=== PATIENT | male | born 1995 | race Caucasian/White ===

== ENCOUNTER 2017-03-30 02:01 | Emergency (ER) | payer SELFPAY ==
[2017-03-30] MEDS ORDERED: HYDROmorphone 2 MG/1 ML IVP ONE (02:33)
[2017-03-30] MEDS ORDERED: HYDROmorphone 2 MG/1 ML ONE (02:36)
[2017-03-30] MEDS ORDERED: Sodium Chloride 0.9% 1,000 ML ONE (02:36)
[2017-03-30] MEDS ORDERED: SILVER SULFADIAZINE 1% TOPICAL SCH (03:45)
[2017-03-30 03:52] VITALS: TEMP 97.6
[2017-03-30] MEDS ORDERED: SILVER SULFADIAZINE 1% TOPICAL ONE (03:55)
[2017-03-30] MEDS ORDERED: HYDROcodone-APAP 10 MG-325 MG TABLET PO SCH (04:00)
[2017-03-30] MEDS ORDERED: Sodium Chloride 0.9% 1,000 ML PRIMARY IV ONE (04:41)
[2017-03-30 04:55] VITALS: RESP 16
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
== END 2017-03-30 04:25 | disposition home or self-care (01) ==
LOC: ER 02:01
DX: T23.291A Burn of second degree of multiple sites of right wrist and hand, initial encounter (principal); X08.8XXA Exposure to other specified smoke, fire and flames, initial encounter
CPT/HCPCS: 96361; 96374; 99283; J1170; J7030

== ENCOUNTER 2017-03-30 14:30 | Emergency (ER) | payer SELFPAY ==
[2017-03-30 14:48] VITALS: RESP 18; TEMP 97
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
== END 2017-03-30 14:57 | disposition home or self-care (01) ==
LOC: ER 14:30
DX: T23.291A Burn of second degree of multiple sites of right wrist and hand, initial encounter (principal); X08.8XXA Exposure to other specified smoke, fire and flames, initial encounter
CPT/HCPCS: 99282

== ENCOUNTER 2017-12-15 01:09 | Inpatient (IN) ==
[2017-12-15] MEDS ORDERED: LORazepam 2 MG/1 ML VIAL ONE ×2 (01:18→02:38)
[2017-12-15] MEDS ORDERED: LORazepam 2 MG/1 ML VIAL IVP ONE ×2 (01:20→07:46)
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
[2017-12-15 01:29] LABS: BASOPHILS # (AUTO) 0.04 10*3/UL; BASOPHILS % (AUTO) 0.4 % (0-1); EOSINOPHILS # (AUTO) 0.39 10*3/UL; EOSINOPHILS % (AUTO) 3.5 % (0-8); Hematocrit [HCT] 50.2 % (42.0-52.0); Hemoglobin [HGB] 18.7 g/dL (14.0-18.0); LYMPHOCYTES # (AUTO) 3.89 10*3/uL; MEAN CORPUSCULAR HEMOGLOBIN 32.1 PG (27-31); MEAN CORPUSCULAR HGB CONC 37.3 g/dL (33-37); MEAN CORPUSCULAR VOLUME 86.1 FL (80-90); MEAN PLATELET VOLUME 9.3 FL (7.4-12.2); MONOCYTES % (AUTO) 6.2 % (5-15); NEUTROPHILS # (AUTO) 6.22 10*3/UL; NEUTROPHILS % (AUTO) 55.1 % (50-80); RED BLOOD COUNT 5.83 10^6/uL (4.70-6.10)
[2017-12-15 01:30] LABS: PLATELET MORPHOLOGY COMMENT NORMAL MORPHOLOGY (NORM); RBC MORPHOLOGY COMMENT NORMAL MORPHOLOGY (NORM); WBC MORPHOLOGY COMMENT NORMAL MORPHOLOGY (NORM)
[2017-12-15] MEDS ORDERED: Midazolam Inj 100 MG in Sodium Chloride 0.9% 80 ML IV SCH ×2 (01:45→02:02)
[2017-12-15] MEDS ORDERED: MIDAZOLAM 5 MG/1 ML ONE (01:47)
[2017-12-15] MEDS ORDERED: MIDAZOLAM HCL 50 MG/10 ML VIAL ONE (01:56)
[2017-12-15] MEDS ORDERED: ONDANSETRON 4 MG/2 ML VIAL IVP ONE (01:57)
[2017-12-15] MEDS ORDERED: Sodium Chloride 0.9% 1,000 ML PRIMARY IV ONE (01:57)
[2017-12-15] MEDS ORDERED: MIDAZOLAM HCL 50 MG/10 ML VIAL IV ONE (02:00)
[2017-12-15 02:14] LABS: AMPHETAMINE SCREEN NEGATIVE (NEG); CANNABINOID SCREEN,URINE NEGATIVE (NEG); COCAINE SCREEN NEGATIVE (NEG); METHADONE URINE SCREEN NEGATIVE (NEG); METHAMPHETAMINES SCREEN,URINE NEGATIVE (NEG); OPIATE SCREEN,URINE NEGATIVE (NEG); URINE SAMPLE TYPE CATH SPECIMEN
[2017-12-15 02:15] LABS: BILIRUBIN,URINE NEGATIVE (NEG); CLARITY,URINE CLEAR (CLEAR); COLOR,URINE YELLOW (Y); GLUCOSE, URINE (UA) NEGATIVE (NEG); OCCULT BLOOD,URINE MODERATE (NEG); PROTEIN,URINE NEGATIVE (NEG); UROBILINOGEN,URINE 0.2 EU/dL (0.2)
[2017-12-15 02:16] LABS: BLOOD UREA NITROGEN 11 mg/dL (7-22); BUN/CREATININE RATIO 12.22 (6-20); SERUM ALBUMIN 4.8 g/dL (3.5-4.8)
[2017-12-15 02:17] LABS: BACTERIA,URINE RARE; SQUAMOUS EPITHELIAL CELL,UR RARE; URINE SPECIFIC GRAVITY - MAN 1.002
[2017-12-15] MEDS ORDERED: Sodium Chloride 0.9% 100 ML IV ONE ×2 (02:26→03:45)
--- NOTE | 2017-12-15 03:28 | DI ---
EXAM: CT Head Without Intravenous Contrast CLINICAL HISTORY: ITS.REASON ams Physician Notes: Tech Comments: TECHNIQUE: Axial computed tomography images of the head/brain without intravenous contrast. COMPARISON: MR brain dated 06/03/2014. FINDINGS: Brain: Unremarkable. No acute intracranial hemorrhage. No midline shift or herniation. Ventricles: Unremarkable. No ventriculomegaly. Bones/joints: No acute fracture. Soft tissues: Unremarkable. Sinuses: Unremarkable as visualized. Mastoid air cells: Unremarkable as visualized. Tubes, lines and devices: Coiling of an orogastric tube within the nasopharynx and oropharynx. IMPRESSION: No acute findings.
--- NOTE | 2017-12-15 03:30 | DI ---
EXAM: XR Chest, 1 View CLINICAL HISTORY: ITS.REASON intubation Physician Notes: Tech Comments: TECHNIQUE: Frontal view of the chest. COMPARISON: None. FINDINGS: Lungs: Unremarkable. The lungs are clear. Pleural space: Unremarkable. No pneumothorax. Heart: Unremarkable. No cardiomegaly. Mediastinum: Unremarkable. Bones/joints: Unremarkable. Tubes, lines and devices: Endotracheal tube terminates approximately 7 cm above the sergei. Gastric tube terminates slightly below the diaphragm. IMPRESSION: No evidence of acute cardiopulmonary process. Slight advancement of orogastric tube suggested.
[2017-12-15 04:36] LABS: ABG PCO2 39 MMHG (34-38); ABG PO2 242 MMHG (65-75)
[2017-12-15 04:37] LABS: ABG OXYGEN SATURATION 100 % (90-100); ALLEN TEST positive
[2017-12-15] MEDS ORDERED: ETOMIDATE 2 MG/1 ML - 20 ML IVP ONE (04:57)
[2017-12-15] MEDS ORDERED: SUCCINYLCHOLINE CHLORIDE 20 MG/1 ML - 10 ML IVP ONE (04:58)
[2017-12-15] MEDS ORDERED: MIDAZOLAM 5 MG/1 ML IVP ONE ×2 (04:59→05:38)
[2017-12-15 06:48] LABS: ABG PCO2 36 MMHG (34-38); ABG PH 7.37 (7.35-7.45)
[2017-12-15 06:49] LABS: ABG BASE EXCESS -4 MMOL/L (-2-2); ABG OXYGEN SATURATION 99 % (90-100); ABG PO2 157 MMHG (65-75)
[2017-12-15] MEDS ORDERED: LORazepam Inj(ETOH withdrawal) 2 MG/ML VIAL IVP PRN ×2 (07:43→14:42)
[2017-12-15] MEDS ORDERED: ONDANSETRON 4 MG/2 ML VIAL IV PRN ×2 (07:43→14:42)
[2017-12-15] MEDS ORDERED: Propofol 1,000 MG/100 ML VIAL IV SCH (07:43)
[2017-12-15] MEDS ORDERED: FENTANYL IV SCH (07:43)
[2017-12-15] MEDS ORDERED: SODIUM CHLORIDE 0.9% IV SCH (07:43)
[2017-12-15] MEDS ORDERED: MAGNESIUM 400 MG/5 ML - 30 ML (MILK OF MAGNESIA) PO PRN (07:43)
[2017-12-15] MEDS ORDERED: MAG HYDROX/AL HYDROX/SIMETH 30 ML SUSP PO PRN (07:43)
[2017-12-15] MEDS ORDERED: Sodium Chloride 0.9% 1,000 ML with Multivitamin Inj 10 ML, Thiamine Inj 100 MG, Folic A... IV SCH ×5 (07:43)
[2017-12-15] MEDS ORDERED: LIDOCAINE W/ SODIUM BICARB 0.5 ML SYR SUBD PRN ×2 (07:43→14:42)
[2017-12-15] MEDS ORDERED: NORMAL SALINE 10 ML SYRINGE FLUSH IVP PRN (07:43)
[2017-12-15] MEDS ORDERED: Loperamide Tab 2 MG TABLET PO PRN (07:43)
[2017-12-15 07:58] LABS: BLOOD UREA NITROGEN 10 mg/dL (7-22); BUN/CREATININE RATIO 14.28 (6-20)
[2017-12-15] MEDS ORDERED: Sodium Chloride 0.9% 500 ML PRIMARY IV SCH ×2 (09:00→14:42)
[2017-12-15] MEDS ORDERED: Thiamine Tab 100 MG TAB PO SCH (09:00)
[2017-12-15] MEDS ORDERED: Pantoprazole Inj 40 MG in Normal Saline Flush 10 ML IVP SCH (09:00)
[2017-12-15] MEDS ORDERED: fentaNYL Inj 100 MCG/2 ML VIAL IVP PRN (09:10)
--- NOTE | 2017-12-15 13:28 | PDOC ---
HPI - History of Present Illness Date of Service: 12/15/17 Time of Service: 08:45 Chief Complaint: Intoxicated, intubated History of Present Illness: This is a 22-year-old male with apparent history of significant alcohol abuse who presented to the emergency room after being brought in by his family in an obtunded and altered mental status state. He did drink heavily, apparently had hit his head on a coffee table, and was not acting appropriately. In the emergency room, it was determined that the patient was not protecting his airway and he was intubated for airway protection due to his alcohol intoxication. His initial blood alcohol level was almost 400. This did decrease. He was also found to be hyponatremic and hypokalemic. He cannot provide me any details as he is intubated. Family is not available at the time of my interview. Past Medical History Medical History: Apparently alcohol abuse Surgical History: Cannot obtain due to intubated state. Pertinent Family History: I cannot obtain this information from the patient as he is intubated Past Social History: Drinks alcohol. I cannot obtain any other information as the patient is intubated Tobacco Use: Smoker Current Status Unknown In the Past 12 Months, Have Used or Abuse Any of the Following Substance: None Alcohol Use: Heavy Medication / Allergies Home Medications: Home Medications 3 Medication Instructions Recorded Confirmed Type ibuprofen 800 mg tablet 800 mg PO TID #30 tab 07/19/17 12/15/17 Rx Acetaminophen [Tylenol] 1,500 mg PO BID PRN 08/02/17 12/15/17 History amoxicillin 875 mg tablet 875 mg PO BID 10 Days #20 tab 12/08/17 12/15/17 Rx Allergies/Adverse Reactions: Allergies 3 Allergy/AdvReac Type Severity Reaction Status Date / Time No Known Drug Allergies Allergy NOT Verified 12/15/17 09:40 APPLICABLE Review of Systems - Review of Systems ROS Unobtainable: Due to Endotracheal Tube (The patient is intubated for airway protection in the setting of alcohol intoxication. He was not protecting his airway and I cannot obtain any information from him regarding his review systems.) Exam - - Exam: Vital Signs (24 hrs) Temp Pulse Pulse Pulse Resp BP BP 12/15/17 13:00 101 H 15 98/62 12/15/17 12:00 83 14 98/62 12/15/17 11:00 81 86 16 93/58 12/15/17 09:59 94 19 103/67 12/15/17 07:43 96.9 F 100 100 16 98/69 12/15/17 07:39 92 14 93/55 12/15/17 07:05 100 14 88/53 12/15/17 03:50 97.1 F 84 14 90/51 12/15/17 01:36 114 H 18 105/70 Pulse Ox 12/15/17 13:00 99 12/15/17 12:00 98 12/15/17 11:00 98 12/15/17 09:59 96 12/15/17 07:43 97 12/15/17 07:39 98 12/15/17 07:05 12/15/17 03:50 100 12/15/17 01:36 - Vitals Vital Signs: Vital Signs Temperature 96.9 F Temperature Source Axillary Pulse Rate [Apical] 100 Pulse Rate [Telemetry] 101 Pulse Rate 81 Respiratory Rate 15 Blood Pressure [Right Arm] 98/62 Pulse Ox 99 Oxygen Delivery Method Mechanical Ventilator Height 5 ft 10 in Weight 149 lb 4.8 oz - General General Appearance: Thin Additional General Exam Details: Initially, the patient was quite combative. He was placed on restraints, soft restraints, in the emergency room, but we were able to remove those restraints in the intensive care unit with sedation and pain control. Otherwise resting on ventilator comfortably now. - Head Head Exam: Normal Inspection, Normocephalic, Atraumatic - Eye Eye Exam: POSITIVE: No Scleral Icterus - ENT ENT Exam: POSITIVE: Mucous Membranes Moist Additonal ENT Exam Details: Endotracheal tube and orogastric tube are in place. - Neck Neck Exam: Normal Inspection, No Lymphadenopathy, No Thyromegaly, JVP is not Raised - Respiratory Respiratory Exam: POSITIVE: Clear to Auscultation - Bilaterally, Breathing Non Labored - Cardiovascular Cardiovascular Exam: POSITIVE: RRR, No Murmur, No Clicks, No Gallops, No Rubs, No JVD - GI/Abdominal GI/Abdominal Exam: POSITIVE: Normal Bowel Sounds, Non Distended, Soft - Rectal Rectal Exam: POSITIVE: Deferred - External Exam: POSITIVE: Deferred Exam: POSITIVE: Deferred - Extremities Extremities Exam: POSITIVE: No Clubbing Present, No Edema Present, No Cyanosis Present - Neurological Additional Neurological Exam Details: Patient is intubated, is on sedative medications, and neurologic examination cannot be done at this time due to this. - Integumentary Integumentary Exam: POSITIVE: Normal Color, Warm, Dry, Intact - Central Line Examination Central Line Present on Admission: No Results - Labs CBC and BMP: 12/15/17 01:20 12/15/17 06:30 Additional Lab Results: Laboratory Results 12/15/17 12/15/17 12/15/17 Range/Units 01:20 01:20 01:50 WBC 11.27 H (4.8-10.8) 10^3/uL RBC 5.83 (4.70-6.10) 10^6/uL Hgb 18.7 H (14.0-18.0) g/dL Hct 50.2 (42.0-52.0) % MCV 86.1 (80-90) FL MCH 32.1 H (27-31) PG MCHC 37.3 H (33-37) g/dL RDW Std Deviation 39.9 (39-50) fL RDW Coeff of Riley 12.9 (11.5-14.5) % Plt Count 238 (140-350) 10*3/uL MPV 9.3 (7.4-12.2) FL Immature Gran % (Auto) 0.3 (0-5) % Neut % (Auto) 55.1 (50-80) % Lymph % (Auto) 34.5 (10-50) % [place] % (Auto) 6.2 (5-15) % Eos % (Auto) 3.5 (0-8) % Baso % (Auto) 0.4 (0-1) % Immature Gran # (Auto) 0.03 10*3/UL Neut # (Auto) 6.22 10*3/UL Lymph # (Auto) 3.89 10*3/uL [place] # (Auto) 0.70 (0.3-0.8) 10*3/UL Eos # (Auto) 0.39 10*3/UL Baso # (Auto) 0.04 10*3/UL WBC Morphology Comment Normal morphology (NORM) Plt Morphology Comment Normal morphology (NORM) RBC Morph Comment Normal morphology (NORM) ABG pH (7.35-7.45) ABG pCO2 (34-38) MMHG ABG pO2 (65-75) MMHG ABG HCO3 (22-26) ABG Total CO2 (23-27) MMOL/L ABG O2 Saturation (90-100) % ABG Base Excess (-2-2) MMOL/L Sina Test FiO2 Sodium 155 H (135-145) meq/L Potassium 3.3 L (3.8-5.2) meq/L Chloride 112 (98-112) meq/L Carbon Dioxide 15 L (23-33) meq/L Anion Gap 28 H (5-20) BUN 11 (7-22) mg/dL Creatinine 0.9 (0.70-1.50) mg/dL Estimated GFR > 60 (>60 ml/min/1.73m(2)) BUN/Creatinine Ratio 12.22 (6-20) Glucose 91 (78-110) mg/dL Calculated Osmolality 318.0 H (267-292) mOsm/kg Calcium 9.0 (8.7-10.7) mg/dL Phosphorus (2.4-4.3) mg/dl Magnesium 2.1 (1.6-2.4) mg/dL Total Bilirubin 0.4 (0.3-1.2) mg/dL AST 29 (21-57) IU/L ALT 34 (21-72) IU/L Alkaline Phosphatase 92 (38-126) IU/L Total Protein 7.9 (6.1-8.0) g/dL Albumin 4.8 (3.5-4.8) g/dL Globulin 3.1 (2.50-4.10) g/dL Albumin/Globulin Ratio 1.50 (1.3-2.0) mg/g Ur Collection Type Cath specimen Urine Color Yellow (Y) Urine Clarity Clear (CLEAR) Urine pH 6.0 (5.0-8.5) Ur Specific Ivel 1.002 (1.005-1.030) U Specif Grav (Refrac) 1.002 Urine Protein Negative (NEG) mg/dl Urine Glucose (UA) Negative (NEG) mg/dL Urine Ketones Negative (NEG) Urine Occult Blood Moderate H (NEG) Urine Nitrate Negative (NEG) Urine Bilirubin Negative (NEG) Urine Urobilinogen 0.2 (0.2) EU/dL Ur Leukocyte Esterase Negative (NEG) Urine RBC 1-3 (NONE) /hpf Urine WBC None (NONE) Ur Squamous Epith Cells Rare (NONE) Ur Renal Epithelial Cell None (NONE) Urine Crystals None Urine Bacteria Rare (NONE) Urine Casts None (NONE) Urine Mucus None (NONE) Urine Trichomonas None (NONE) Urine Yeast None (NONE) Ur Culture Indicated? Culture not set Urine Opiates Screen Negative (NEG) Ur Buprenorphine Negative (NEG) Ur Oxycodone Screen Negative (NEG) Urine Methadone Screen Negative (NEG) Ur Propoxyphene Screen Negative (NEG) Barbiturate Screen Negative (NEG) U Tricyclic Antidepress Negative (NEG) Phencyclidine Screen Negative (NEG) Amphetamines Screen Negative (NEG) U Methamphetamines Scrn Negative (NEG) Benzodiazepines Screen Negative (NEG) Cocaine Screen Negative (NEG) U Marijuana (THC) Screen Negative (NEG) Serum Alcohol 358 H (0-10) mg/dL 12/15/17 12/15/17 12/15/17 Range/Units 02:20 06:30 06:43 WBC (4.8-10.8) 10^3/uL RBC (4.70-6.10) 10^6/uL Hgb (14.0-18.0) g/dL Hct (42.0-52.0) % MCV (80-90) FL MCH (27-31) PG MCHC (33-37) g/dL RDW Std Deviation (39-50) fL RDW Coeff of [place] (11.5-14.5) % Plt Count (140-350) 10*3/uL MPV (7.4-12.2) FL Immature Gran % (Auto) (0-5) % Neut % (Auto) (50-80) % Lymph % (Auto) (10-50) % [place] % (Auto) (5-15) % Eos % (Auto) (0-8) % Baso % (Auto) (0-1) % Immature Gran # (Auto) 10*3/UL Neut # (Auto) 10*3/UL Lymph # (Auto) 10*3/uL [place] # (Auto) (0.3-0.8) 10*3/UL Eos # (Auto) 10*3/UL Baso # (Auto) 10*3/UL WBC Morphology Comment (NORM) Plt Morphology Comment (NORM) RBC Morph Comment (NORM) ABG pH 7.30 L (7.35-7.45) ABG pCO2 39 H (34-38) MMHG ABG pO2 242 H (65-75) MMHG ABG HCO3 -7 L (22-26) ABG Total CO2 19 L (23-27) MMOL/L ABG O2 Saturation 100 (90-100) % ABG Base Excess 20 H (-2-2) MMOL/L Sina Test positive FiO2 0.50 Sodium 151 H (135-145) meq/L Potassium 3.8 (3.8-5.2) meq/L Chloride 118 H (98-112) meq/L Carbon Dioxide 20 L (23-33) meq/L Anion Gap 13 (5-20) BUN 10 (7-22) mg/dL Creatinine 0.7 (0.70-1.50) mg/dL Estimated GFR > 60 (>60 ml/min/1.73m(2)) BUN/Creatinine Ratio 14.28 (6-20) Glucose 77 L (78-110) mg/dL Calculated Osmolality 309.0 H (267-292) mOsm/kg Calcium 7.5 L (8.7-10.7) mg/dL Phosphorus 3.0 (2.4-4.3) mg/dl Magnesium 1.8 (1.6-2.4) mg/dL Total Bilirubin 0.3 (0.3-1.2) mg/dL AST 50 (21-57) IU/L ALT 30 (21-72) IU/L Alkaline Phosphatase 74 (38-126) IU/L Total Protein 5.6 L (6.1-8.0) g/dL Albumin 3.0 L (3.5-4.8) g/dL Globulin 2.6 (2.50-4.10) g/dL Albumin/Globulin Ratio 1.10 L (1.3-2.0) mg/g Ur Collection Type Urine Color (Y) Urine Clarity (CLEAR) Urine pH (5.0-8.5) Ur Specific Ivel (1.005-1.030) U Specif Grav (Refrac) Urine Protein (NEG) mg/dl Urine Glucose (UA) (NEG) mg/dL Urine Ketones (NEG) Urine Occult Blood (NEG) Urine Nitrate (NEG) Urine Bilirubin (NEG) Urine Urobilinogen (0.2) EU/dL Ur Leukocyte Esterase (NEG) Urine RBC (NONE) /hpf Urine WBC (NONE) Ur Squamous Epith Cells (NONE) Ur Renal Epithelial Cell (NONE) Urine Crystals Urine Bacteria (NONE) Urine Casts (NONE) Urine Mucus (NONE) Urine Trichomonas (NONE) Urine Yeast (NONE) Ur Culture Indicated? Urine Opiates Screen (NEG) Ur Buprenorphine (NEG) Ur Oxycodone Screen (NEG) Urine Methadone Screen (NEG) Ur Propoxyphene Screen (NEG) Barbiturate Screen (NEG) U Tricyclic Antidepress (NEG) Phencyclidine Screen (NEG) Amphetamines Screen (NEG) U Methamphetamines Scrn (NEG) Benzodiazepines Screen (NEG) Cocaine Screen (NEG) U Marijuana (THC) Screen (NEG) Serum Alcohol 238 H (0-10) mg/dL 12/15/17 Range/Units 06:45 WBC (4.8-10.8) 10^3/uL RBC (4.70-6.10) 10^6/uL Hgb (14.0-18.0) g/dL Hct (42.0-52.0) % MCV (80-90) FL MCH (27-31) PG MCHC (33-37) g/dL RDW Std Deviation (39-50) fL RDW Coeff of Riley (11.5-14.5) % Plt Count (140-350) 10*3/uL MPV (7.4-12.2) FL Immature Gran % (Auto) (0-5) % Neut % (Auto) (50-80) % Lymph % (Auto) (10-50) % [place] % (Auto) (5-15) % Eos % (Auto) (0-8) % Baso % (Auto) (0-1) % Immature Gran # (Auto) 10*3/UL Neut # (Auto) 10*3/UL Lymph # (Auto) 10*3/uL [place] # (Auto) (0.3-0.8) 10*3/UL Eos # (Auto) 10*3/UL Baso # (Auto) 10*3/UL WBC Morphology Comment (NORM) Plt Morphology Comment (NORM) RBC Morph Comment (NORM) ABG pH 7.37 (7.35-7.45) ABG pCO2 36 (34-38) MMHG ABG pO2 157 H (65-75) MMHG ABG HCO3 21 L (22-26) ABG Total CO2 22 L (23-27) MMOL/L ABG O2 Saturation 99 (90-100) % ABG Base Excess -4 L (-2-2) MMOL/L Sina Test Pending FiO2 40 Sodium (135-145) meq/L Potassium (3.8-5.2) meq/L Chloride (98-112) meq/L Carbon Dioxide (23-33) meq/L Anion Gap (5-20) BUN (7-22) mg/dL Creatinine (0.70-1.50) mg/dL Estimated GFR (>60 ml/min/1.73m(2)) BUN/Creatinine Ratio (6-20) Glucose (78-110) mg/dL Calculated Osmolality (267-292) mOsm/kg Calcium (8.7-10.7) mg/dL Phosphorus (2.4-4.3) mg/dl Magnesium (1.6-2.4) mg/dL Total Bilirubin (0.3-1.2) mg/dL AST (21-57) IU/L ALT (21-72) IU/L Alkaline Phosphatase (38-126) IU/L Total Protein (6.1-8.0) g/dL Albumin (3.5-4.8) g/dL Globulin (2.50-4.10) g/dL Albumin/Globulin Ratio (1.3-2.0) mg/g Ur Collection Type Urine Color (Y) Urine Clarity (CLEAR) Urine pH (5.0-8.5) Ur Specific [place] (1.005-1.030) U Specif Grav (Refrac) Urine Protein (NEG) mg/dl Urine Glucose (UA) (NEG) mg/dL Urine Ketones (NEG) Urine Occult Blood (NEG) Urine Nitrate (NEG) Urine Bilirubin (NEG) Urine Urobilinogen (0.2) EU/dL Ur Leukocyte Esterase (NEG) Urine RBC (NONE) /hpf Urine WBC (NONE) Ur Squamous Epith Cells (NONE) Ur Renal Epithelial Cell (NONE) Urine Crystals Urine Bacteria (NONE) Urine Casts (NONE) Urine Mucus (NONE) Urine Trichomonas (NONE) Urine Yeast (NONE) Ur Culture Indicated? Urine Opiates Screen (NEG) Ur Buprenorphine (NEG) Ur Oxycodone Screen (NEG) Urine Methadone Screen (NEG) Ur Propoxyphene Screen (NEG) Barbiturate Screen (NEG) U Tricyclic Antidepress (NEG) Phencyclidine Screen (NEG) Amphetamines Screen (NEG) U Methamphetamines Scrn (NEG) Benzodiazepines Screen (NEG) Cocaine Screen (NEG) U Marijuana (THC) Screen (NEG) Serum Alcohol (0-10) mg/dL - Imaging Status: Image Reviewed by Me (CT of the head on my view was negative for any acute bleed. Chest x-ray is negative. The endotracheal tube looks to be a correct position.) Assessment and Plan - Patient Problems (1) Respiratory failure Current Visit: Yes Status: Acute Code(s): J96.90 - Respiratory failure, unspecified, unspecified whether with hypoxia or hypercapnia Qualifiers: Chronicity: acute Respiratory failure complication: unspecified whether with hypoxia or hypercapnia Qualified Code(s): J96.00 - Acute respiratory failure, unspecified whether with hypoxia or hypercapnia (2) Alcohol intoxication Current Visit: Yes Status: Acute Code(s): F10.929 - Alcohol use, unspecified with intoxication, unspecified (3) Alcohol abuse Current Visit: Yes Status: Acute Code(s): F10.10 - Alcohol abuse, uncomplicated - Assessment / Plan Additional Assessment/Plan Details: Admit the patient, hopefully will be able to titrate oxygen as the patient's PaO2 looks a little elevated on his most recent blood gas. He will be admitted to the ICU for ventilatory care, and again as the patient rehana up and his blood alcohol drops, my hope is that the patient will be able to be extubated. I feel no written for pain at this time, propofol written for sedation, and once patient is extubated, tolerating, we will make sure he is on CIWA protocol for any potential withdrawal symptoms. Fluids, electrolyte correction, and potassium replacement as necessary. Thiamine Magnesium Check labs tomorrow Patient may benefit from a [facility] consult for severe alcohol abuse. Total critical care time, 40 minutes. No overlap.
[2017-12-15 14:24] LABS: BLOOD UREA NITROGEN 10 mg/dL (7-22); BUN/CREATININE RATIO 14.28 (6-20)
[2017-12-15] MEDS ORDERED: ChlordiazePOXIDE 25mg Cap (ETOH withdrawal) PO PRN (14:42)
[2017-12-15] MEDS ORDERED: LORazepam 1 mg tab (ETOH withdrawal) PO PRN (14:42)
[2017-12-15 17:43] LABS: ABG BASE EXCESS -7 MMOL/L (-2-2)
[2017-12-15] MEDS ORDERED: Sodium Chloride 0.9% 1,000 ML ONE (17:59)
[2017-12-16 04:36] VITALS: BP 109/54; RESP 20; TEMP 98.3; O2SAT 93
[2017-12-16 05:01] LABS: BLOOD UREA NITROGEN 11 mg/dL (7-22); BUN/CREATININE RATIO 15.71 (6-20); SERUM ALBUMIN 3.4 g/dL (3.5-4.8)
[2017-12-16] MEDS ORDERED: Sodium Chloride 0.9% 1,000 ML with Multivitamin Inj 10 ML, Thiamine Inj 100 MG, Folic A... IV SCH ×5 (07:43)
[2017-12-16] MEDS ORDERED: Thiamine Tab 100 MG TAB PO SCH (09:00)
[2017-12-16] MEDS ORDERED: Pantoprazole Inj 40 MG in Normal Saline Flush 10 ML IVP SCH (09:00)
--- NOTE | 2017-12-16 10:23 | DCSUMMARY ---
Hospitalization Summary Admit Date: 12/15/2017 Discharge Date: 12/16/17 Primary Diagnosis:: respiratory failure, resolved Secondary Diagnosis:: Alcohol intoxication, strong suspicion for alcoholism. Hospital Course: This is a 22-year-old male that came in so intoxicated that he was not protecting his airway and had to be intubated for protection of airway. He was admitted, and as he sobered up, we were able to titrate his sedation, and extubate. Electrolyte are replaced. Patient got thiamine and folate. Today, he is awake, alert, and wants to go home. He states to me that he does not normally drink this much and has a beer occasionally. It is my clinical suspicion that the patient is lying to me and minimizing his alcohol use. I discussed with him that he could from alcohol use at this consumption level , developed pancreatitis and/or liver problems or even occlude his airway. I offered him a counselor with [facility], but he refused. He has no plan other than to just stop drinking on his own. No completes of chest pain, shortness breath, nausea or vomiting today. He wants to go home. Assessment and Plan: 1. As per discharge assessments noted 2. Disposition: Patient is discharged home. 3. Condition on discharge, stable and improved. 4. Diet: regular diet 5. Activities: Never drink alcohol again. 6. Follow-Up: 1. See primary care provider within 7 days of discharge. 2. 7. Medications at the Time of Discharge: I discontinued all medications patient was on. 8. Time, care, counseling and coordination of care for this discharge is less than 30 minutes. Exam - Vitals Vital Signs: Vital Signs Temperature 98.3 F Temperature Source Temporal Artery Scan Pulse Rate [Pulse Oximeter] 80 Pulse Rate [Apical] 98 Pulse Rate [Telemetry] 98 Pulse Rate 74 Respiratory Rate 20 Blood Pressure [Right Arm] 109/54 Pulse Ox 93 Oxygen Delivery Method Room Air Height 5 ft 10 in Weight 149 lb 4.8 oz - General General Appearance: No Acute Distress, Cooperative - Head Head Exam: Normal Inspection, Normocephalic, Atraumatic - Eye Eye Exam: POSITIVE: No Scleral Icterus - Respiratory Respiratory Exam: POSITIVE: Clear to Auscultation - Bilaterally, Breathing Non Labored - Cardiovascular Cardiovascular Exam: POSITIVE: RRR, No Murmur, No Clicks, No Gallops, No Rubs, No JVD - GI/Abdominal GI/Abdominal Exam: POSITIVE: Normal Bowel Sounds, Non Tender, Non Distended, Soft - Extremities Extremities Exam: POSITIVE: No Clubbing Present, No Edema Present, No Cyanosis Present - Neurological Neurological Exam: POSITIVE: Alert, Oriented x 3, No Facial Droop, Speech Intact / Clear, Moves All Extremities Equally Additional Neurological Exam Details: I did not notice any tremors or other signs of alcohol withdrawal. - Psychiatric Psychiatric Exam: POSITIVE: Normal Affect, Normal Mood - Integumentary Integumentary Exam: POSITIVE: Normal Color, Warm, Dry, Intact Data Peritnent Studies: Laboratory Results 12/15/17 12/15/17 12/15/17 Range/Units 02:20 14:08 14:10 ABG HCO3 19 L (22-26) ABG Total CO2 20 L (23-27) MMOL/L ABG Base Excess -7 L (-2-2) MMOL/L Sodium 148 H (135-145) meq/L Potassium 4.0 (3.8-5.2) meq/L Chloride 115 H (98-112) meq/L Carbon Dioxide 21 L (23-33) meq/L Anion Gap 12 (5-20) BUN 10 (7-22) mg/dL Creatinine 0.7 (0.70-1.50) mg/dL Estimated GFR > 60 (>60 ml/min/1.73m(2)) BUN/Creatinine Ratio 14.28 (6-20) Glucose 75 L (78-110) mg/dL Calculated Osmolality 303.0 H (267-292) mOsm/kg Calcium 7.8 L (8.7-10.7) mg/dL Magnesium (1.6-2.4) mg/dL Total Bilirubin (0.3-1.2) mg/dL AST (21-57) IU/L ALT (21-72) IU/L Alkaline Phosphatase (38-126) IU/L Total Protein (6.1-8.0) g/dL Albumin (3.5-4.8) g/dL Globulin (2.50-4.10) g/dL Albumin/Globulin Ratio (1.3-2.0) mg/g Serum Folate > 20.0 H (2.76-20.0) NG/ML Serum Alcohol 143 H (0-10) mg/dL 12/16/17 Range/Units 04:20 ABG HCO3 (22-26) ABG Total CO2 (23-27) MMOL/L ABG Base Excess (-2-2) MMOL/L Sodium 141 (135-145) meq/L Potassium 3.8 (3.8-5.2) meq/L Chloride 109 (98-112) meq/L Carbon Dioxide 23 (23-33) meq/L Anion Gap 9 (5-20) BUN 11 (7-22) mg/dL Creatinine 0.7 (0.70-1.50) mg/dL Estimated GFR > 60 (>60 ml/min/1.73m(2)) BUN/Creatinine Ratio 15.71 (6-20) Glucose 70 L (78-110) mg/dL Calculated Osmolality 288.0 (267-292) mOsm/kg Calcium 8.7 (8.7-10.7) mg/dL Magnesium 1.9 (1.6-2.4) mg/dL Total Bilirubin 0.8 (0.3-1.2) mg/dL AST 77 H (21-57) IU/L ALT 28 (21-72) IU/L Alkaline Phosphatase 85 (38-126) IU/L Total Protein 6.1 (6.1-8.0) g/dL Albumin 3.4 L (3.5-4.8) g/dL Globulin 2.7 (2.50-4.10) g/dL Albumin/Globulin Ratio 1.20 L (1.3-2.0) mg/g Serum Folate (2.76-20.0) NG/ML Serum Alcohol (0-10) mg/dL Patient Problems - Patient Problem List (1) Respiratory failure Current Visit: Yes Status: Resolved Code(s): J96.90 - Respiratory failure, unspecified, unspecified whether with hypoxia or hypercapnia Qualifiers: Chronicity: acute Respiratory failure complication: unspecified whether with hypoxia or hypercapnia Qualified Code(s): J96.00 - Acute respiratory failure, unspecified whether with hypoxia or hypercapnia Category: Medical (2) Alcohol intoxication Current Visit: Yes Status: Resolved Code(s): F10.929 - Alcohol use, unspecified with intoxication, unspecified Category: Medical (3) Alcohol abuse Current Visit: Yes Status: Suspected Code(s): F10.10 - Alcohol abuse, uncomplicated Category: Medical
[2018-01-02 14:27] LABS: ALLEN TEST N
== END 2017-12-16 10:40 | disposition home or self-care (01) | DRG 189 ==
LOC: ER 01:09 → ICU 07:16 → MED/SURG 14:46
PROVIDERS: ADMIT Family Medicine; ATTEND Family Medicine